=== PATIENT | female | born 1985 | race African-American/Black ===

== ENCOUNTER 2023-08-07 19:09 | Emergency (ER) | payer MEDICAID ==
[~2023-08-07] VITALS: Ht 167.6 cm; Wt 70.0 kg
[~2023-08-07 19:09] MED LIST: FERR-63 PO; IBUP-1008 PO
[2023-08-07] MEDS ORDERED: CEFTRIAXONE SODIUM 500MG VIAL IM ONE (19:30)
[2023-08-07 19:34] VITALS: BP 122/75; PULSE 84; RESP 18; TEMP 98; O2SAT 100
[2023-08-07 20:57] LABS: BASOPHILS % 0.6 % (0.0-2.0); EOSINOPHILS % 3.1 % (0.0-5.0); HEMATOCRIT. 27.7 % (36.0-48.0); HEMOGLOBIN. 8.2 g/dL (12.0-16.0); LYMPHOCYTES % 29.6 % (20.0-50.0); MEAN CORPUSCULAR HEMOGLOBIN 19.4 pg (28.0-32.0); MEAN CORPUSCULAR HGB CONC 29.5 g/dL (31.0-37.0); MEAN CORPUSCULAR VOLUME 65.6 fL (81.0-99.0); MEAN PLATELET VOLUME 8.7 fl (7.4-10.4); MONOCYTES % 9.8 % (2.0-8.0); NEUTROPHILS % 56.9 % (40.0-76.0); PLATELET 305 x1000/uL (130-400); RED BLOOD CELL COUNT 4.23 mill/uL (4.2-5.4); RED CELL DISTRIBUTION WIDTH 17.9 % (11.6-14.6); WHITE BLOOD COUNT 7.2 x1000/uL (4.5-11.0)
[2023-08-07 21:01] LABS: CLARITY URINE CLOUDY (CLEAR); COLOR URINE YELLOW (YELLOW); GLUCOSE URINE NEGATIVE (NEGATIVE); KETONES URINE NEGATIVE (NEGATIVE); LEUKOCYTE ESTERASE URINE TRACE (NEGATIVE); NITRITE URINE NEGATIVE (NEGATIVE); OCCULT BLOOD URINE 3+ (NEGATIVE); PH URINE 5.5 (4.5-8.0); PROTEIN URINE TRACE (NEGATIVE); SPECIFIC GRAVITY URINE 1.024 (1.005-1.030)
[2023-08-07 21:16] LABS: ALANINE AMINOTRANSFERASE < 7 IU/L (10-49); ALBUMIN 4.4 g/dL (3.2-4.8); ASPARTATE AMINOTRANSFERASE 13 IU/L (<34); B-HCG QUANTITATIVE 108316 mIU/mL (<3); BILIRUBIN TOTAL 0.3 mg/dL (0.1-1.0); CALCIUM 9.4 mg/dL (8.7-10.4); CARBON DIOXIDE 23 mEq/L (21-32); CHLORIDE 105 mEq/L (98-107); CREATININE 0.6 mg/dL (0.6-1.0); GLUCOSE 93 mg/dL (70-105); POTASSIUM 3.7 mEq/L (3.5-5.1); PROTEIN TOTAL 7.7 g/dL (6.0-8.3); SODIUM 136 mEq/L (136-145); UREA NITROGEN BLOOD 7 mg/dL (9-23)
[2023-08-07 21:45] LABS: ADD RBC MORPHOLOGY YES; DIFFERENTIAL COMMENT 1
[2023-08-07 22:01] LABS: BACTERIA URINE 2+; RBC URINE 0-2 /hpf (0-2); SQUAMOUS EPITHELIAL CELL URINE 2+ /lpf (RARE/1+)
[2023-08-07 22:06] LABS: HYPOCHROMASIA 1+; MICROCYTOSIS 1+; PLATELET ESTIMATE NORMAL
[2023-08-07] MEDS: METOCLOPRAMIDE HCL 10MG TABLET PO ONE (22:07)
[2023-08-07] MEDS ORDERED: AZITHROMYCIN 500 MG TABLET PO ONE (22:15)
== END 2023-08-07 22:30 | disposition home or self-care (01) ==
LOC: ER 19:09
DX: O20.0 Threatened abortion (principal); Z3A.01 Less than 8 weeks gestation of pregnancy; Z98.890 Other specified postprocedural states
CPT/HCPCS: 99284; 76801; 87491; 87591; 80053; 81003; 81025; 84702; 85025; 86850; 86900; 86901; 36415; 76817; J8597

== ENCOUNTER 2023-10-11 13:50 | Emergency (ER) | payer MEDICAID ==
[~2023-10-11] VITALS: Ht 167.6 cm; Wt 66.0 kg
[2023-10-11 14:00] VITALS: O2SAT 97
[2023-10-11 14:43] VITALS: BP 121/71; PULSE 71; RESP 16; TEMP 98.8
== END 2023-10-11 14:45 | disposition home or self-care (01) ==
LOC: ER 14:41
DX: R42 Dizziness and giddiness (principal); Z98.890 Other specified postprocedural states
CPT/HCPCS: 99281

== ENCOUNTER 2025-01-05 02:17 | Emergency (ER) | payer MEDICAID, OTHER ==
[~2025-01-05] VITALS: Ht 167.6 cm; Wt 72.0 kg
[2025-01-05 02:23] VITALS: BP 126/80; TEMP 36.7; O2SAT 98
[2025-01-05 02:40] VITALS: PULSE 112; RESP 16; O2SAT 99
[2025-01-05] MEDS ORDERED: ACETAMINOPHEN 325MG TABLET PO ONE (03:00)
[2025-01-05] MEDS ORDERED: ONDANSETRON HCL 4MG TABLET PO ONE (03:00)
== END 2025-01-05 03:27 | disposition left against medical advice (07) ==
LOC: ER 02:17
DX: R10.2 Pelvic and perineal pain (principal); Z98.890 Other specified postprocedural states
CPT/HCPCS: 99282; Q0162